=== PATIENT | female | born 1985 | race American Indian/Alaskan Native ===

== ENCOUNTER 2016-08-21 09:27 | Emergency (ER) | payer OTHER ==
[2016-08-21] MEDS ORDERED: TYLENOL ONE (11:07)
== END 2016-08-21 16:15 | disposition home or self-care (01) ==
LOC: ED 09:27
DX: M79.1 Myalgia (principal); R50.9 Fever, unspecified; R05 Cough; R51 Headache; H93.8X1 Other specified disorders of right ear
CPT/HCPCS: 87400; 99282